=== PATIENT | male | born 1990 | race Caucasian/White ===

== ENCOUNTER 2016-10-17 20:05 | Emergency (ER) | payer OTHER ==
[2016-10-17] MEDS ORDERED: LIDOCAINE 1% MDV 20ML VIAL As Ordered ONE (21:33)
--- NOTE | 2016-10-17 22:32 | EDDOCDS ---
Nurse's Notes [facility] Name: Itz Saavedra Age: 26 yrs Sex: Male : 1990 Arrival Date: 10/17/2016 Time: 20:05 Bed TR8 Private MD: Other - Complete Info On Cds Diagnosis: Laceration without foreign body of left hand-KINSEY SURFACE, THIRD MCP JOINT Presentation: 10/17 20:10 Presenting complaint: Patient states: cut palm underneath left middle finger on a dsf spatula. Adult Sepsis Screening: The patient does not have new or worsening altered mentation. Patient's respiratory rate is less than 22. Systolic blood pressure is greater than 100. Patient has a qSOFA score of 0- Negative Sepsis Screen. Suicide/Homicide risk assessment- the patient denies having any suicidal and/or homicidal ideations and does not present with any other emotional, behavioral or mental health complaints. Status: The patient is an active duty dental service technician. Transition of care: patient was not received from another setting of care. 20:10 Acuity: SAURABH Level 4 dsf 20:10 Method Of Arrival: Walkin/Carried/Asstd dsf Triage Assessment: 20:11 General: Appears in no apparent distress, Behavior is appropriate for age, cooperative. dsf Pain: Location: palm of left hand Pain currently is 2 out of 10 on a pain scale. Quality of pain is described as throbbing, Pain began 1 hour ago. HIV screening NA for this visit active . Musculoskeletal: No deficits noted. Historical: - Allergies: no known allergies; - Home Meds: 1. Zoloft 100 mg Oral tab 1 tab once daily (Last dose: 10/17/2016 09:00) 2. Concerta 54 mg Oral tr24 1 tab once daily (Last dose: 10/17/2016 09:00) - PMHx: ADHD; Depression; - PSHx: none; - Social history: Smoking status: Patient uses tobacco products, current some day smoker. No barriers to communication noted, The patient speaks fluent Tristanian, Speaks appropriately for age. - Family history: Not pertinent. - : The pt / caregiver states he / she is not on anticoagulants. Home medication list is obtained from the patient. - Exposure Risk Screening:: None identified. Screenin:18 Screening information is obtained from the patient. Fall risk: No risks identified. cz Assistance ADL's: requires no assistance with activities of daily living. Abuse/DV Screen: The patient / caregiver reports he/she is: not in a situation that causes fear, pain or injury. Nutritional screening: No deficits noted. Advance Directives: Currently, there is no health care proxy. There is no active DNR order. There is no living will. There is no Power of Matlab Developer. Advance directive information has not previously been placed in an [facility] medical record. home support is adequate. Assessment: 21:18 General: alert male with laceration to base of 3rd digit left hand . cz Vital Signs: 20:07 BP 155 / 90; Pulse 95; Resp 18 S; Temp 98.8(O); Pulse Ox 98% on R/A; Weight 106.59 kg gr2 (R); Height 6 ft. 0 in. (182.88 cm) (R); Pain 3/10; 22:30 BP 145 / 89; Pulse 81; Resp 16; Pulse Ox 95% on R/A; cz 20:07 Body Mass Index 31.87 (106.59 kg, 182.88 cm) gr2 Vitals: 20:07 Log In Time: October 17, 2016 at 20:07. gr2 ED Course: 20:06 Patient visited by Jerrica Dudley. gr2 20:06 Patient moved to Waiting gr2 20:07 Other - Complete Info On Cds is Private Physician. gr2 20:09 Patient visited by Jerrica Dudley. gr2 20:09 Patient moved to Pre RCE gr2 20:10 Triage Initiated dsf 21:16 Patient moved to Triage 1 cz 21:18 The patient / caregiver is instructed regarding the plan of care and ED course. cz 21:26 [facility] Washington [facility]. dt4 21:26 Mikey Mooney DO is Attending Physician. dt4 21:26 Patient visited by Sadie Washington PA-C. dt4 21:35 Patient moved to PD cz 22:05 Patient name changed from Itz\S\J\S\Saavedra\S\ to Itz\S\Ric\S\Saavedra. EDMS 22:07 [facility] Payment Agreement was scanned into [employer] and attached to record. gb 22:09 Patient moved to TR8 cz 22:30 No IV's were initiated during this patient's visit. cz 22:30 Assist provider with laceration repair using mary, Laceration was <2.5 cm. with a cz simple repair. Performed by Sadie Washington PA-C Dressed with band aid, Patient tolerated well. Administered Medications: 21:56 Drug: Lidocaine 10 ml [lidocaine 10 mg/mL (1 %) injection solution (10 mL)] {Note: cz medication used by Jony Washington PXanderAXander.} Route: Infiltration; Order Results: There are currently no results for this order. Outcome: 21:59 Discharge ordered by Provider. dt4 22:30 Discharge Assessment: Patient awake, alert and oriented x 3. No cognitive and/or cz functional deficits noted. Patient verbalized understanding of disposition instructions. patient administered narcotics - no. The following High Risk Discharge criteria are identified: None. Discharged to home ambulatory. Condition: stable. Discharge instructions given to patient, Instructed on discharge instructions, follow up and referral plans. Demonstrated understanding of instructions, Pt was receptive of discharge instructions/ teaching. No special radiology studies were completed. Property :Personal belongings accompany Pt. 22:32 Patient left the ED. cz Signatures: Dispatcher [employer] EDMS Dragan Kimble RN RN Cele López, Cecy Noguera RN RN [facility] Jerrica Dudley 2 Sadie Washington PA-C PA-C dt4 Corrections: (The following items were deleted from the chart) 22:30 21:18 General: alert male with laceration to base of 3rd digit right hand . cz cz MTDD
--- NOTE | 2016-10-17 22:32 | EDDOCDS ---
Physician Documentation [facility] Name: Itz Saavedra Age: 26 yrs Sex: Male : 1990 Arrival Date: 10/17/2016 Time: 20:05 Bed TR8 Private MD: Other - Complete Info On Cds Disposition: 10/17/16 21:59 Discharged to Home/Self Care. Impression: Laceration without foreign body of left hand - KINSEY SURFACE, THIRD MCP JOINT. - Condition is Stable. - Discharge Instructions: Laceration Care, Adult. - Medication Reconciliation, Local Pharmacy Hours form. - Follow up: Emergency Department; When: 10-12 DAYS ; Reason: Wound/Symptom Recheck, Staple/Suture removal. - Problem is new. - Symptoms have improved. Historical: - Allergies: no known allergies; - Home Meds: 1. Zoloft 100 mg Oral tab 1 tab once daily (Last dose: 10/17/2016 09:00) 2. Concerta 54 mg Oral tr24 1 tab once daily (Last dose: 10/17/2016 09:00) - PMHx: ADHD; Depression; - PSHx: none; - Social history: Smoking status: Patient uses tobacco products, current some day smoker. No barriers to communication noted, The patient speaks fluent Samoan, Speaks appropriately for age. - Family history: Not pertinent. - : The pt / caregiver states he / she is not on anticoagulants. Home medication list is obtained from the patient. - Exposure Risk Screening:: None identified. Vital Signs: 10/17 20:07 BP 155 / 90; Pulse 95; Resp 18 S; Temp 98.8(O); Pulse Ox 98% on R/A; Weight 106.59 kg / gr2 234.99 lbs (R); Height 6 ft. 0 in. (182.88 cm) (R); Pain 3/10; 22:30 BP 145 / 89; Pulse 81; Resp 16; Pulse Ox 95% on R/A; cz 20:07 Body Mass Index 31.87 (106.59 kg, 182.88 cm) gr2 MDM: 21:31 Lidocaine 10 mg/mL (1 %) 10 ml Infiltration once; to bedside, WITHOUT EPI. THANK YOU. dt4 ordered. 22:02 Financial registration complete. gb 22:07 [facility] Payment Agreement was scanned into [employer] and attached to record. gb Administered Medications: 21:56 Drug: Lidocaine 10 ml [lidocaine 10 mg/mL (1 %) injection solution (10 mL)] {Note: [place] medication used by Jony Washington PMaritza} Route: Infiltration; Signatures: Dragan Kimble RN RN Cele López, Reg Reg Cecy Angel RN RN dsf Tschudi, Diane, PA-C PA-C dt4 The chart was reviewed and I authenticate all verbal orders and agree with the evaluation and treatment provided.Attachments: 22:07 [facility] Payment Agreement gb MTDD
--- NOTE | 2016-10-19 23:32 | EDDOCDS ---
Physician Documentation [facility] Name: Itz Saavedra Age: 26 yrs Sex: Male : 1990 Arrival Date: 10/17/2016 Time: 20:05 Bed TR8 Private MD: Other - Complete Info On Cds Disposition: 10/17/16 21:59 Discharged to Home/Self Care. Impression: Laceration without foreign body of left hand - KINSEY SURFACE, THIRD MCP JOINT. - Condition is Stable. - Discharge Instructions: Laceration Care, Adult. - Medication Reconciliation, Local Pharmacy Hours form. - Follow up: Emergency Department; When: 10-12 DAYS ; Reason: Wound/Symptom Recheck, Staple/Suture removal. - Problem is new. - Symptoms have improved. Historical: - Allergies: no known allergies; - Home Meds: 1. Zoloft 100 mg Oral tab 1 tab once daily (Last dose: 10/17/2016 09:00) 2. Concerta 54 mg Oral tr24 1 tab once daily (Last dose: 10/17/2016 09:00) - PMHx: ADHD; Depression; - PSHx: none; - Social history: Smoking status: Patient uses tobacco products, current some day smoker. No barriers to communication noted, The patient speaks fluent Chadian, Speaks appropriately for age. - Family history: Not pertinent. - : The pt / caregiver states he / she is not on anticoagulants. Home medication list is obtained from the patient. - Exposure Risk Screening:: None identified. Vital Signs: 10/17 20:07 BP 155 / 90; Pulse 95; Resp 18 S; Temp 98.8(O); Pulse Ox 98% on R/A; Weight 106.59 kg / gr2 234.99 lbs (R); Height 6 ft. 0 in. (182.88 cm) (R); Pain 3/10; 22:30 BP 145 / 89; Pulse 81; Resp 16; Pulse Ox 95% on R/A; cz 20:07 Body Mass Index 31.87 (106.59 kg, 182.88 cm) gr2 MDM: 21:31 Lidocaine 10 mg/mL (1 %) 10 ml Infiltration once; to bedside, WITHOUT EPI. THANK YOU. dt4 ordered. 22:02 Financial registration complete. gb 22:07 [facility] Payment Agreement was scanned into [employer] and attached to record. gb 10/18 11:40 T-Sheet-- Draft Copy was scanned into [employer] and attached to record. gb Administered Medications: 10/17 21:56 Drug: Lidocaine 10 ml [lidocaine 10 mg/mL (1 %) injection solution (10 mL)] {Note: cz medication used by Jony Washington P.A..} Route: Infiltration; Signatures: Dragan Kimble RN RN Cele López, Reg Reg Cecy Angel RN RN dsf Tschudi, Diane, PAGallo PAGallo dt4 The chart was reviewed and I authenticate all verbal orders and agree with the evaluation and treatment provided.Attachments: 22:07 [facility] Agreement gb 10/18 11:40 T-Sheet-- Draft Copy gb Chart Complete MTDD
--- NOTE | 2016-10-19 23:32 | EDDOCDS ---
Nurse's Notes [facility] Name: Itz Saavedra Age: 26 yrs Sex: Male : 1990 Arrival Date: 10/17/2016 Time: 20:05 Bed TR8 Private MD: Other - Complete Info On Cds Diagnosis: Laceration without foreign body of left hand-KINSEY SURFACE, THIRD MCP JOINT Presentation: 10/17 20:10 Presenting complaint: Patient states: cut palm underneath left middle finger on a dsf spatula. Adult Sepsis Screening: The patient does not have new or worsening altered mentation. Patient's respiratory rate is less than 22. Systolic blood pressure is greater than 100. Patient has a qSOFA score of 0- Negative Sepsis Screen. Suicide/Homicide risk assessment- the patient denies having any suicidal and/or homicidal ideations and does not present with any other emotional, behavioral or mental health complaints. 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 Transition of care: patient was not received from another setting of care. 20:10 Acuity: SAURABH Level 4 dsf 20:10 Method Of Arrival: Walkin/Carried/Asstd dsf Triage Assessment: 20:11 General: Appears in no apparent distress, Behavior is appropriate for age, cooperative. dsf Pain: Location: palm of left hand Pain currently is 2 out of 10 on a pain scale. Quality of pain is described as throbbing, Pain began 1 hour ago. HIV screening NA for this visit active . Musculoskeletal: No deficits noted. Historical: - Allergies: no known allergies; - Home Meds: 1. Zoloft 100 mg Oral tab 1 tab once daily (Last dose: 10/17/2016 09:00) 2. Concerta 54 mg Oral tr24 1 tab once daily (Last dose: 10/17/2016 09:00) - PMHx: ADHD; Depression; - PSHx: none; - Social history: Smoking status: Patient uses tobacco products, current some day smoker. No barriers to communication noted, The patient speaks fluent British, Speaks appropriately for age. - Family history: Not pertinent. - : The pt / caregiver states he / she is not on anticoagulants. Home medication list is obtained from the patient. - Exposure Risk Screening:: None identified. Screenin:18 Screening information is obtained from the patient. Fall risk: No risks identified. cz Assistance ADL's: requires no assistance with activities of daily living. Abuse/DV Screen: The patient / caregiver reports he/she is: not in a situation that causes fear, pain or injury. Nutritional screening: No deficits noted. Advance Directives: Currently, there is no health care proxy. There is no active DNR order. There is no living will. There is no Power of Shipping/Receiving Manager. Advance directive information has not previously been placed in an [facility] medical record. home support is adequate. Assessment: 21:18 General: alert male with laceration to base of 3rd digit left hand . cz Vital Signs: 20:07 BP 155 / 90; Pulse 95; Resp 18 S; Temp 98.8(O); Pulse Ox 98% on R/A; Weight 106.59 kg gr2 (R); Height 6 ft. 0 in. (182.88 cm) (R); Pain 3/10; 22:30 BP 145 / 89; Pulse 81; Resp 16; Pulse Ox 95% on R/A; cz 20:07 Body Mass Index 31.87 (106.59 kg, 182.88 cm) gr2 Vitals: 20:07 Log In Time: October 17, 2016 at 20:07. gr2 ED Course: 20:06 Patient visited by Jerrica Dudley. gr2 20:06 Patient moved to Waiting gr2 20:07 Other - Complete Info On Cds is Private Physician. gr2 20:09 Patient visited by Jerrica Dudley. gr2 20:09 Patient moved to Pre RCE gr2 20:10 Triage Initiated dsf 21:16 Patient moved to Triage 1 cz 21:18 The patient / caregiver is instructed regarding the plan of care and ED course. cz 21:26 Sadie Washington [facility]C [facility]. dt4 21:26 Mikey Mooney DO is Attending Physician. dt4 21:26 Patient visited by Sadie Washington PA-C. dt4 21:35 Patient moved to PD cz 22:05 Patient name changed from Itz\S\J\S\Saavedra\S\ to Itz\S\Ric\S\Saavedra. EDMS 22:07 [facility] Payment Agreement was scanned into [employer] and attached to record. gb 22:09 Patient moved to TR8 cz 22:30 No IV's were initiated during this patient's visit. cz 22:30 Assist provider with laceration repair using mary, Laceration was <2.5 cm. with a cz simple repair. Performed by Sadie Washington PA-C Dressed with band aid, Patient tolerated well. 10/18 11:40 T-Sheet-- Draft Copy was scanned into [employer] and attached to record. gb Administered Medications: 10/17 21:56 Drug: Lidocaine 10 ml [lidocaine 10 mg/mL (1 %) injection solution (10 mL)] {Note: cz medication used by oJny Washington P.A..} Route: Infiltration; Order Results: There are currently no results for this order. Outcome: 21:59 Discharge ordered by Provider. dt4 22:30 Discharge Assessment: Patient awake, alert and oriented x 3. No cognitive and/or cz functional deficits noted. Patient verbalized understanding of disposition instructions. patient administered narcotics - no. The following High Risk Discharge criteria are identified: None. Discharged to home ambulatory. Condition: stable. Discharge instructions given to patient, Instructed on discharge instructions, follow up and referral plans. Demonstrated understanding of instructions, Pt was receptive of discharge instructions/ teaching. No special radiology studies were completed. Property :Personal belongings accompany Pt. 22:32 Patient left the ED. cz Signatures: [facility] Dragan Kimble RN RN Cele López, Reg Reg Cecy AngelRN RN dsf Jerrica Dudley gr2 Sadie Washington PA-C PA-C dt4 Corrections: (The following items were deleted from the chart) 22:30 21:18 General: alert male with laceration to base of 3rd digit right hand . cz cz Chart Complete MTDD
--- NOTE | 2016-10-19 23:32 | EDDOCDS ---
Physician Documentation [facility] Name: Itz Saavedra Age: 26 yrs Sex: Male : 1990 Arrival Date: 10/17/2016 Time: 20:05 Bed TR8 Private MD: Other - Complete Info On Cds Disposition: 10/17/16 21:59 Discharged to Home/Self Care. Impression: Laceration without foreign body of left hand - KINSEY SURFACE, THIRD MCP JOINT. - Condition is Stable. - Discharge Instructions: Laceration Care, Adult. - Medication Reconciliation, Local Pharmacy Hours form. - Follow up: Emergency Department; When: 10-12 DAYS ; Reason: Wound/Symptom Recheck, Staple/Suture removal. - Problem is new. - Symptoms have improved. Historical: - Allergies: no known allergies; - Home Meds: 1. Zoloft 100 mg Oral tab 1 tab once daily (Last dose: 10/17/2016 09:00) 2. Concerta 54 mg Oral tr24 1 tab once daily (Last dose: 10/17/2016 09:00) - PMHx: ADHD; Depression; - PSHx: none; - Social history: Smoking status: Patient uses tobacco products, current some day smoker. No barriers to communication noted, The patient speaks fluent Croatian, Speaks appropriately for age. - Family history: Not pertinent. - : The pt / caregiver states he / she is not on anticoagulants. Home medication list is obtained from the patient. - Exposure Risk Screening:: None identified. Vital Signs: 10/17 20:07 BP 155 / 90; Pulse 95; Resp 18 S; Temp 98.8(O); Pulse Ox 98% on R/A; Weight 106.59 kg / gr2 234.99 lbs (R); Height 6 ft. 0 in. (182.88 cm) (R); Pain 3/10; 22:30 BP 145 / 89; Pulse 81; Resp 16; Pulse Ox 95% on R/A; cz 20:07 Body Mass Index 31.87 (106.59 kg, 182.88 cm) gr2 MDM: 21:31 Lidocaine 10 mg/mL (1 %) 10 ml Infiltration once; to bedside, WITHOUT EPI. THANK YOU. dt4 ordered. 22:02 Financial registration complete. gb 22:07 [facility] Payment Agreement was scanned into [employer] and attached to record. gb 10/18 11:40 T-Sheet-- Draft Copy was scanned into [employer] and attached to record. gb Administered Medications: 10/17 21:56 Drug: Lidocaine 10 ml [lidocaine 10 mg/mL (1 %) injection solution (10 mL)] {Note: cz medication used by Jony Washington P.A..} Route: Infiltration; Signatures: Dragan Kimble RN RN Cele López, Reg Reg Cecy Angel RN RN dsf Tschudi, Diane, PAGallo PAGallo dt4 The chart was reviewed and I authenticate all verbal orders and agree with the evaluation and treatment provided.Attachments: 22:07 [facility] Agreement gb 10/18 11:40 T-Sheet-- Draft Copy gb Chart Complete MTDD
== END 2016-10-17 22:32 | disposition home or self-care (01) ==
LOC: M ED 20:05
DX: S61.412A Laceration without foreign body of left hand, initial encounter (principal); S61.213A Laceration without foreign body of left middle finger without damage to nail, initial encounter; W45.8XXA Other foreign body or object entering through skin, initial encounter; Y92.019 Unspecified place in single-family (private) house as the place of occurrence of the external cause; Y93.89 Activity, other specified; Y99.8 Other external cause status; F90.9 Attention-deficit hyperactivity disorder, unspecified type; F32.9 Major depressive disorder, single episode, unspecified; F17.200 Nicotine dependence, unspecified, uncomplicated; Z79.899 Other long term (current) drug therapy